=== PATIENT | female | born 1965 | race Caucasian/White ===

== ENCOUNTER 2021-08-29 10:58 | Emergency (ER) | payer BC, SELFPAY ==
[2021-08-29 11:06] VITALS: BP 154/84; PULSE 74; RESP 16; TEMP 37.2; O2SAT 98
--- NOTE | 2021-08-29 12:33 | ED.FEMALEGU ---
HPI - Female Genitourinary General Chief complaint: Urogenital-Female Stated complaint: Possible Yeast infection Time Seen by Provider: 08/29/21 12:34 Source: patient and RN notes reviewed Mode of arrival: ambulatory Limitations: no limitations History of Present Illness HPI Narrative: 56-year-old female presents with concern for 10-day history of vaginal itching, perineal itching and burning. She denies dysuria, hematuria, frequency, urgency, abdominal pain, back pain, fever. She reports white vaginal discharge. She reports that she has become sexually active after not being active for 5 years with a monogamous partner. States she would like to be tested for STDs. She reports she used a Monistat 3 treatment [id number] with no relief of her symptoms. MD elicited complaint: UTI Related Data Home Medications Medication Instructions Recorded Confirmed atorvastatin 20 mg tablet 20 tablet PO EVERY OTHER DAY 08/29/21 08/29/21 Allergies Allergy/AdvReac Type Severity Reaction Status Date / Time No Known Allergies Allergy Verified 08/29/21 11:36 Review of Systems Review of Systems: CONSTITUTIONAL: Denies malaise, chills, sweats, or fever. CARDIOVASCULAR: Denies chest pain, palpitations, or edema. RESPIRATORY: Denies cough or dyspnea. GASTROINTESTINAL: Denies abdominal pain, nausea, vomiting, diarrhea GENITOURINARY: Denies dysuria, frequency, urgency, suprapubic pressure. Denies flank pain or hematuria. Reports vaginal discharge SKIN: Reports vaginal and perineal itching MUSCULOSKELETAL: Denies back pain or myalgia. All systems reviewed & are unremarkable except as noted in HPI and below PMFSH Comments At time of signature, agree with nursing past medical, surgical, social and family history. There is no relevant family history pertinent to the presenting complaint Exam Narrative: GENERAL: Well-appearing, well-nourished, and in no acute distress. HEAD: Normocephalic. EYES: PERRLA, conjunctivae clear. NECK: Supple. No lymphadenopathy CHEST: Clear to auscultation. No respiratory distress. HEART: Regular rate and rhythm. ABDOMEN: Soft, nontender upon palpation, nondistended, normal active bowel sounds, no palpable or pulsatile masses, no guarding. SKIN: Warm, dry, no rash. NEURO: Alert and oriented x3. PSYCH: Normal mood and affect : External Female Exam: normal external appearance Speculum Exam - Vagina: normal appearance of the vagina and abnormal vaginal discharge white ([place]) Speculum Exam - Cervix: normal appearance of the cervix Bimanual exam- vagina & uterus: normal bimanual exam Bimanual Exam- Adnexa, other: normal adnexae Course Course Emergency Course: Discussed that likely diagnosis is yeast infection, however due to patient's recent change in sexual activity she would still like to be tested for STDs, patient understands that if any of these tests are positive she may have to return for treatment. Patient is aware of diagnosis, understands and agrees to treatment plan. Anticipatory guidance given. Patient agrees to follow-up as directed and is aware of reasons to seek care at the emergency department. Portions of this record may have been created with voice recognition software Level of Care: Express Care Visit Vital Signs Vital signs: Vital Signs Temperature 98.9 F 08/29/21 11:06 Pulse Rate 74 08/29/21 11:06 Respiratory Rate 16 08/29/21 11:06 Blood Pressure 154/84 H 08/29/21 11:06 Pulse Oximetry 98 08/29/21 11:06 Oxygen Delivery Room Air 08/29/21 11:06 Temperature 98.9 F 08/29/21 11:06 Pulse Rate 74 08/29/21 11:06 Respiratory Rate 16 08/29/21 11:06 Blood Pressure 154/84 H 08/29/21 11:06 Pulse Oximetry 98 08/29/21 11:06 Oxygen Delivery Room Air 08/29/21 11:06 Reviewed. MDM - Female Genitourinary MDM Narrative Medical decision making narrative: Exam findings and UA show no acute concerns or changes; patient is non-toxic appearing and
== END 2021-08-29 13:00 | disposition home or self-care (01) ==
PROVIDERS: Emergency Provider Nurse Practitioner; PCP Internal Medicine
DX: N89.8 Other specified noninflammatory disorders of vagina (principal)
CPT/HCPCS: 81003; 87070; 87077; 87491; 87591; 87661; 99214; G0463